=== PATIENT | female | born 1995 | race Caucasian/White ===

== ENCOUNTER 2025-02-02 14:55 | Emergency (ER) | payer OTHER ==
[2025-02-02 15:14] VITALS: BP 118/79; PULSE 98; RESP 18; TEMP 98.2; BMI 27.4
[2025-02-02] MEDS ORDERED: ACETAMINOPHEN 1000 MG/100 ML BAG IVPB ONE (15:37)
[2025-02-02] MEDS ORDERED: IBUPROFEN 400 MG TABLET (FP) PO ONE (15:42)
[2025-02-02] MEDS ORDERED: LIDOCAINE 2.5%/PRILOCAINE 2.5% (5 Gram/TUBE) TP ONE (15:43)
[2025-02-02] MEDS ORDERED: ACETAMINOPHEN 500 MG TABLET (FP) ONE (15:43)
[2025-02-02] MEDS ORDERED: LIDOCAINE 5% TOPICAL PATCH ONE (15:47)
[2025-02-02] MEDS: LIDOCAINE 2.5%/PRILOCAINE 2.5% 30 GRAM TUBE TP ONE (15:50)
[2025-02-02] MEDS: LIDOCAINE 5% TOPICAL PATCH TP ONE (15:55)
[2025-02-02] MEDS: IBUPROFEN 400 MG TABLET (FP) PO ONE (15:55)
[2025-02-02] MEDS: ACETAMINOPHEN 500 MG TABLET (FP) PO ONE (15:55)
[2025-02-02] MEDS ORDERED: DIPHTH,PERTUSS(ACELL),TET 0.5 ML DISP.SYRIN IM ONE (16:00)
[2025-02-02] MEDS: DIPHTH,PERTUSS(ACELL),TET 0.5 ML DISP.SYRIN IM ONE (16:41)
[2025-02-02] MEDS ORDERED: LIDOCAINE PATCH REMOVAL MC SCH (22:00)
== END 2025-02-02 17:45 | disposition home or self-care (01) ==
LOC: FER 14:55
PROC: 2W3EX1Z Immobilization of Right Hand using Splint (ICD-10-PCS; principal; 2025-02-02)
PROC: 3E0234Z Introduction of Serum, Toxoid and Vaccine into Muscle, Percutaneous Approach (ICD-10-PCS; 2025-02-02)
DX: S60.511A Abrasion of right hand, initial encounter (principal); S80.211A Abrasion, right knee, initial encounter; Z23 Encounter for immunization; W01.0XXA Fall on same level from slipping, tripping and stumbling without subsequent striking against object, initial encounter; Y92.009 Unspecified place in unspecified non-institutional (private) residence as the place of occurrence of the external cause
CPT/HCPCS: 29125; 73110-TC-RT-FY; 73130-TC-RT-FY; 73564-TC-RT-FY; 90471; 90715; 99284-25